=== PATIENT | male | born 1935 | race Caucasian/White ===

== ENCOUNTER 2016-12-25 14:26 | Emergency (ER) | payer OTHER ==
[2016-12-25] MEDS ORDERED: EPINEPHRINE ONE (14:42)
[2016-12-25] MEDS ORDERED: EPINEPHRINE SUBQ ONE ×2 (14:46→15:22)
[2016-12-25] MEDS ORDERED: ZYRTEC PO ONE (14:47)
[2016-12-25] MEDS ORDERED: SODIUM CHLORIDE 0.9% INJ ONE (14:47)
[2016-12-25] MEDS ORDERED: BENADRYL PO ONE (14:47)
[2016-12-25] MEDS ORDERED: PROTONIX IV ONE (14:47)
[2016-12-25] MEDS ORDERED: SOLU-MEDROL IV ONE (14:48)
--- NOTE | 2016-12-25 14:48 | PROVIDER DOCUMENTATION ---
HPI-EENT General - General Chief Complaint: Tongue Swelling Stated Complaint: ALLERGIC REACTION Time Seen by Provider: 12/25/16 14:43 Source: patient Allergies/Adverse Reactions: Patient Allergies Allergy/AdvReac Type Severity Reaction Status Date / Time furosemide [From Lasix] Allergy SWELLING Verified 12/25/16 14:40 Home Medications: Home Medication List Medication Instructions Recorded Confirmed Last Taken Type ATORVAstatin [Lipitor] 40 mg PO DAILY 12/25/16 12/25/16 Unknown History Allopurinol 100 mg PO DAILY 12/25/16 12/25/16 Unknown History Aspirin 81 mg PO DAILY 12/25/16 12/25/16 Unknown History Glipizide 15 mg PO DAILY 12/25/16 12/25/16 Unknown History Metformin [Glucophage] 1,500 mg PO DAILY 12/25/16 12/25/16 Unknown History Metoprolol [Lopressor] 50 mg PO BID 12/25/16 12/25/16 Unknown History Prednisone 10 mg PO DAILY #10 tablet 12/25/16 Unknown Rx - History of Present Illness-EENT General Nature of Presenting Problem: Pt is 81 y/o M presents to the ED with tongue swelling. Pt states symptoms started at 1200. Pt states tongue swelling started and soon after he ate a ham biscuit. Pt states PCP started him in bumetanide 1mg 5 days ago. Pt denies trouble breathing. EENT Location: reports: mouth (tongue) Quality of Pain: reports: none Severity: reports: severe Onset/Duration: reports: this afternoon Timing: reports: still present Prearrival Treatment: Initiated no prearrival treatment Associated Symptoms: reports: other (tongue swelling). denies: change in hearing, cough, drooling, ear drainage, facial pain/swelling, fever, malaise, nasal congestion/drainage, poor fluid intake, poor solids intake, sinus infection, sore throat, tooth pain, voice change Similar Symptoms Previously?: Yes Recently seen or treated by another doctor?: No - Eyes Eye Problem Symptoms: denies: eye pain - Ears Ear Problem Symptoms: reports: none - Throat/Dental Throat/Dental Problem Symptoms: reports: none Review of Systems - Adult - REVIEW OF SYSTEMS - ADULT Constitutional: denies: chills, fever Eyes: denies: blurred vision, double vision Ears, Nose, Mouth & Throat: reports: other (tongue swelling). denies: ear pain , nose pain, throat pain Cardiovascular: reports: irregular heart rate (tachy). denies: chest pain, heart murmur Respiratory: denies: cough, shortness of breath, wheezing Gastrointestinal: denies: abdominal pain, diarrhea, nausea, vomiting Genitourinary: denies: dysuria, hematuria Musculoskeletal: denies: bone pain, joint pain, neck pain Integumentary: denies: hives, itching Neurological: denies: dizziness/vertigo, headache/migraines Psychiatric: reports: no symptoms reported Endocrine: reports: no symptoms reported Hematologic/Lymphatic: reports: no symptoms reported Allergic/Immunologic: reports: no symptoms reported All Other Systems: Reviewed and Negative Past History - Adult - PAST MEDICAL HISTORY-ADULT Review of Records: reports: Nursing Assessment Review, Medications Reviewed, Social history reviewed & non-contributory. 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 - IMMUNIZATION STATUS Childhood Immunizations: See Nurse Assessment Flu Vaccine: See Nurse Assessment - FAMILY HISTORY Family History: reviewed, not pertinent - SOCIAL HISTORY Smoking: denies Substance Use: denies Living Situation: family Physical Exam- EENT - Physical Exam EENT Initial Vital Signs Reviewed: Yes General Appearance: appears well, alert, no apparent distress Eye Exam: bilateral eye: normal inspection, PERRL, EOMI Ear Exam: bilateral ear: auricle normal, canal normal, TM normal Nasal Exam: normal inspection Throat Exam: pharynx normal, tongue swollen Neck: non-tender, full range of motion, supple, normal inspection Respiratory: chest non-tender, lungs clear, normal breath sounds, no pleuratic chest pain, no respiratory distress, no accessory muscle use Cardiovascular: normal peripheral pulses, no edema, no gallop, no JVD, no murmur , tachycardia Abdominal Exam: normal bowel sounds, non tender, soft, no organomegaly, no pulsatile mass Lymphatic: no adenopathy Back Exam: normal inspection, no CVA tenderness, no vertebral tenderness Extremity: normal range of motion, non-tender, normal gait, normal inspection, no pedal edema, no calf tenderness Integumentary: normal color, normal turgor, warm/dry 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, grossly normal, no motor/sensory deficits Psych/Mental Status: normal mood/affect, normal thought content, normal thought process, oriented x 3 Progress - PLAN OF CARE/RESULTS Progress/Plan/Lab Results: Orders Category Date Time Status Cetirizine [Zyrtec] Med 12/25/16 14:47 Discontinued 10 mg PO NOW ONE Diphenhydramine [Benadryl] Med 12/25/16 14:47 Discontinued 25 mg PO NOW ONE Epinephrine Med 12/25/16 14:46 Discontinued 0.1 mg SUBQ NOW ONE Epinephrine Med 12/25/16 15:22 Discontinued 0.1 mg SUBQ NOW ONE Epinephrine Med 12/25/16 14:42 Discontinued 1 mg .ROUTE .STK-MED ONE Methylprednisolone Sod Succ [Solu-Medrol] Med 12/25/16 14:48 Discontinued 40 mg IV NOW ONE Pantoprazole [Protonix] Med 12/25/16 14:47 Discontinued 40 mg IV NOW ONE Sodium Chloride 0.9% Med 12/25/16 14:47 Discontinued 10 ml INJ NOW ONE Vital Signs - 24 hr 12/25/16 12/25/16 12/25/16 14:28 15:00 15:30 Temperature 98 F Pulse Rate 114 H 108 H 108 H Respiratory 18 16 20 Rate Blood Pressure 168/75 174/74 176/77 O2 Sat by Pulse 100 100 99 Oximetry - CONSULTS/PCP/HOSPITALIST Notification #1 *Consult/PCP/Hospitalist*: Dr. Doe Time Discussed: 16:55 (Dr. Doe states will see in ED ) Reason/Comments: Dr. Crocker consulted with Dr. Doe about Pt Consult Disposition: Will see in ED Departure - Departure Time of Disposition Order: 17:34 DIAGNOSIS: Allergic reaction caused by a drug Qualifiers: Encounter type: initial encounter Qualified Code(s): T78.40XA - Allergy, unspecified, initial encounter Disposition: HOME 01 Certified Medical Emergency: Emergent Condition: Stable Additional Instructions: ED Follow Up Instructions: You have been treated by a care provider in the Emergency Department. These instructions are being provided to you so you can have an understanding of how to care for yourself upon discharge. Upon discharge from the Emergency Department, you are responsible for making arrangements for follow-up care by a physician of your choice. Take all prescribed medications as directed. Return to the Emergency Department immediately for any new or worsening symptoms. You may call the Physician Referral phone number at [phone] to obtain a list of Physicians who are taking new patients. Prescriptions: Prednisone 10 mg PO DAILY #10 tablet Referrals: Ventura Doe MD [Primary Care Provider] - Forms: Return to School/Parent Work Instructions: Allergies, Prednisone tablets Attestation - Scribe Verification/Attestation Scribe:: Sindy Jeter Acting as Scribe for:: Julia Crocker Scribe documention review:: This chart was documented by a scribe and accurately reflects the service the provider performed and the decisions made by the provider.
[2016-12-25 17:55] VITALS: BP 170/90
== END 2016-12-25 17:40 | disposition home or self-care (01) ==
LOC: P.ED 14:26
DX: R22.0 Localized swelling, mass and lump, head (principal); T50.905A Adverse effect of unspecified drugs, medicaments and biological substances, initial encounter; R00.0 Tachycardia, unspecified; I10 Essential (primary) hypertension; Z85.9 Personal history of malignant neoplasm, unspecified; E11.9 Type 2 diabetes mellitus without complications; Z95.1 Presence of aortocoronary bypass graft; Z79.899 Other long term (current) drug therapy; Z79.82 Long term (current) use of aspirin
CPT/HCPCS: 96372; 96374; 96375; C9113; J0171; J2920; S0164